=== PATIENT | female | born 1975 | race Asian ===

== ENCOUNTER 2023-07-22 06:27 | Emergency (ER) | payer OTHER ==
[~2023-07-22] VITALS: Ht 147.3 cm; Wt 62.1 kg
[~2023-07-22 06:27] MED LIST: ACET-503 PO
[2023-07-22 06:35] VITALS: BP 168/104; PULSE 91; RESP 16; TEMP 97.6; O2SAT 99
[2023-07-22 06:41] VITALS: BP 168/104; PULSE 91; RESP 16; TEMP 97.6
[2023-07-22 06:42] VITALS: O2SAT 99
[2023-07-22 07:06] LABS: BASOPHILS # (AUTO) 0.1 K/uL (0.00-0.22); EOSINOPHILS # (AUTO) 0.2 K/uL (0-0.4); EOSINOPHILS % (AUTO) 2.1 % (0.0-4.0); HEMATOCRIT 41.1 % (36-48); HEMOGLOBIN 14.2 g/dL (12.0-16.0); LYMPHOCYTES # (AUTO) 2.5 K/uL (2.5-16.5); LYMPHOCYTES % (AUTO) 33.6 % (20.5-51.1); MEAN CORPUSCULAR HEMOGLOBIN 33 pg (27-31); MEAN CORPUSCULAR HGB CONC 35 g/dL (33-37); MEAN CORPUSCULAR VOLUME 94.4 fL (80-94); MONOCYTES # (AUTO) 0.5 K/uL (0.8-1.0); MONOCYTES % (AUTO) 6.7 % (1.7-9.3); NEUTROPHILS # (AUTO) 4.2 K/uL (1.8-7.7); NEUTROPHILS % (AUTO) 56.6 % (42.2-75.2); PLATELET COUNT (AUTO) 363 K/uL (140-450); RED BLOOD CELL COUNT(AUTO) 4.35 MIL/uL (4.20-5.40); RED CELL DISTRIBUTION WIDTH 13.5 % (11.6-13.7); WHITE BLOOD COUNT (AUTO) 7.5 K/uL (4.8-10.8)
[2023-07-22 07:22] LABS: ANION GAP 16.7 (8-16); CALCIUM 9.3 mg/dL (8.5-10.1); CARBON DIOXIDE 24.5 mmol/L (21-32); CREATININE 0.8 mg/dL (0.6-1.3); POTASSIUM 3.2 mmol/L (3.5-5.1)
[2023-07-22] MEDS: KETOROLAC 30 MG/ML VIAL IM ONE (08:29)
== END 2023-07-22 08:48 | disposition home or self-care (01) ==
LOC: MED 06:27
DX: R10.2 Pelvic and perineal pain (principal); R10.32 Left lower quadrant pain; I10 Essential (primary) hypertension; Z98.890 Other specified postprocedural states; Z79.1 Long term (current) use of non-steroidal anti-inflammatories (NSAID)
CPT/HCPCS: 36415; 76830; 80048; 81002; 81025; 85025; 93976; 96372; 99285; J1885; Q0092